=== PATIENT | female | born 1980 | race Caucasian/White ===

== ENCOUNTER 2020-08-15 16:54 | Emergency (ER) | payer OTHER, SELFPAY ==
[2020-08-15 17:27] VITALS: BP 94/55; PULSE 83; RESP 16; TEMP 36.7; O2SAT 96; BMI 30.9
--- NOTE | 2020-08-15 18:55 | ED.SKABFB ---
HPI - Skin/Abscess/Foreign Bdy General Chief complaint: Skin/Abscess/Foreign Body Stated complaint: Red inflamed skin Time Seen by Provider: 08/15/20 18:36 Source: patient Mode of arrival: ambulatory Limitations: no limitations History of Present Illness HPI narrative: 40 y/o female presenting with 1 month of painful sores and ulcerations on her bilateral forearms after she applied lice treatment to her arms. She works as a [employer] and her patient had lice and bed bugs which she treated him for. She then applied some of the creams to her arms because she was paranoid about getting infected. Since then she has had painful blisters and sores to her bilateral forearms. She admits to picking and scratching at them. She applied saran wrap to them because she did not want them to get infected. She reports some oozing of pus some from some of the sites. No fevers or chills. No N/V. MD complaint: abscess/boil and lesion Onset (ago): week(s) (4) Tetanus up to date: yes Location: LUE and RUE Severity: moderate Severity scale (1-10): 7 Quality: burning Pain Consistency: constant Relieving factors: cold therapy Exacerbating factors: none Context: new medication Associated symptoms: denies other symptoms Treatments prior to arrival: bandages, attempted to drain pus at home and OTC topical medication Related Data Previous Rx's Medication Instructions Recorded cephalexin 500 mg PO Q6H 7 Days #28 cap 08/15/20 doxycycline monohydrate 100 mg PO BID #14 cap 08/15/20 mupirocin 1 appl TOPICAL BID #22 g 08/15/20 Allergies Allergy/AdvReac Type Severity Reaction Status Date / Time No Known Allergies Allergy Verified 08/15/20 17:27 Review of Systems Review of Systems: Constitutional: No Fever, No Chills Cardiovascular: No Chest Pain, No SOB Respiratory: No Cough, No Sputum Gastrointestinal: No Nausea, No Vomiting Musculoskeletal: No joint pain, No Myalgias Skin: + Skin Lesions, + rash Neuro: No Weakness, No Numbness, No Dizziness, No Headache Psych: + Anxiety/Panic, No Depression Heme/Lymph: No Bruising, No Lymphadenopathy PMFSH Past Medical History Attestation statement: The following information was validated with the patient. Medical History Back pain Social History Social History Advance Directives: No Advance Directives Information Provided: Yes Physical Exam Vital Signs: Vital Signs: Last Vital Signs Temp 98.1 F 08/15/20 17:27 Pulse 83 08/15/20 17:27 Resp 16 08/15/20 17:27 BP 94/55 L 08/15/20 17:27 Pulse Ox 96 08/15/20 17:27 Body Mass Index 30.9 Appearance: Alert. Oriented X3. No acute distress. HEENT: normal inspection CVS: Normal heart rate and rhythm. Pulses normal. Respiratory: No respiratory distress. Skin: Skin warm and dry. Normal skin color. Normal skin turgor. No rashes. Extremities: bilateral forearms with muliple superficial ulcerations in various stages of healing with surrounding erythema and induration, no fluctuance. right forearm with 1 cm ulceration with oozing. NV intact distally, mildly warm Neuro: Oriented X 3. No motor deficit. No sensory deficit. Course Course Course Narrative: 40 y/o female presenting with bilateral forearm painful ulcerations with induration and erythema consistent with cellulitis. No swelling to suggest DVT. She is afebrile and non-toxic appearing. Will treat with topical and oral abx and have her f/u with [facility] for further management. 1st dose ABX given now. She was counseled on proper wound care. Stable for d/c. Instructed to return of symptoms worsen. Critical Care Time Critical Care Time Critical Care Time: No Discharge Plan Discharge Clinical Impression: Cellulitis Qualifiers: Site of cellulitis: extremity Site of cellulitis of extremity: upper extremity Laterality: unspecified laterality Qualified Code(s): L03.119 - Cellulitis of unspecified part of limb Patient Disposition: Home, Self-Care Instructions: Cellulitis (ED) Additional Instructions: Use topical antibiotic ointment as directed. Keep covered with gauze ONLY. Gently wash with mild, scent free soap daily and then pat dry. Take prescribed antibiotics for 1 week. Follow up with the Wound Center If you develop new or worsening symptoms call 911 or come back to the ER for further evaluation. Prescriptions: New doxycycline monohydrate 100 mg capsule 100 mg PO BID Qty: 14 RF: 0 mupirocin 2 % ointment 1 appl topical BID Qty: 22 RF: 1 cephalexin 500 mg capsule 500 mg PO Q6H 7 Days Qty: 28 RF: 0 Referrals: Wound Care [facility] [Outside] - 2 days
[2020-08-15] MEDS: cephALEXin 500 MG CAPSULE PO (19:17)
== END 2020-08-15 19:14 | disposition home or self-care (01) ==
PROVIDERS: Emergency Provider Emergency Medicine
DX: L03.114 Cellulitis of left upper limb (principal); L03.113 Cellulitis of right upper limb; L98.499 Non-pressure chronic ulcer of skin of other sites with unspecified severity
CPT/HCPCS: 99283; 99284

== ENCOUNTER 2021-03-13 14:40 | Inpatient (IN) | payer OTHER, SELFPAY ==
[2021-03-13] VITALS (13 sets, daily range): BP systolic 95–131; BP diastolic 44–64; PULSE 70–99; RESP 13–20; TEMP 36.7–39.6; O2SAT 96–100
--- NOTE | ~2021-03-13 | XR_ITS ---
EXAMINATION: XR CHEST CLINICAL INFORMATION: Chest pain. COMPARISON: Chest radiograph dated from 03/22/2006. TECHNIQUE: AP view of the chest was obtained. FINDINGS: Normal appearance of the cardiomediastinal silhouette. Multifocal hazy airspace opacities with likely some trace amount of bilateral pleural fluid. No pneumothorax. No acute osseous abnormalities. XR/XR chest 1V IMPRESSION: Hazy multifocal airspace opacities concerning for an atypical infectious or inflammatory process. Recommend continued follow-up to ensure adequate resolution.
--- NOTE | 2021-03-13 14:47 | ECG_ITS ---
Test Reason : chstp pain Blood Pressure : / mmHG Vent. Rate : 094 BPM Atrial Rate : 094 BPM P-R Int : 090 ms QRS Dur : 098 ms QT Int : 378 ms P-R-T Axes : 021 057 087 degrees QTc Int : 472 ms Sinus rhythm with short ME Nonspecific ST abnormality Abnormal ECG No previous ECGs available Referred By: Generic ED Physician Electronically Signed By:ROLANDO RANGEL MD
--- NOTE | 2021-03-13 15:49 | PC.NURSE ---
unable to get blood work in triage
--- NOTE | 2021-03-13 17:53 | ED_ITS ---
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 with nonhealing wounds of both forearms patient still shooting in the wounds specially on the right forearm last time used cocaine was 2 days ago complaining of chest pain started right chest going to the left for last 5-7 days after shoveling snow patient states the pain is continues no shortness of breath no cough noted to have fever of 103 F in the ER patient does not have any history of heart disease patient has received [employer] vaccine Related Data Home Medications Medication Instructions Recorded Confirmed No Known Home Meds 03/13/21 03/13/21 Allergies Allergy/AdvReac Type Severity Reaction Status Date / Time No Known Allergies Allergy Verified 08/15/20 17:27 Review of Systems Verdana 4l Review of Systems: Yes all other systems are reviewed and Verdana 4d are negative [facility] Past Medical History Medical History Back pain Social History Social History Alcohol intake: never Patient Tobacco Use Status: Current everyday Tobacco user Smoked in Last 30 Days: Yes Use of substances other than those prescribed or required for medical reasons: Yes Substance Use Type: Crack/Cocaine, Heroin and Other Substance Use Type Other:: Benzos Substance Use Frequency: Chronic Longstanding Substance Use Frequency Other:: Daily Last Used Substance: Days (ago) Any prior treatment program specific to substance use: Yes Advance Directives: No Advance Directives Information Provided: No Patient : No Physical Exam Verdana 4l Vital Signs: Verdana 4d Verdana 4d Vital Signs: Verdana 4d Verdana 4Bd Last Vital Signs Verdana 4d [employer] New 4d [employer] New 4d Temp 98.0 F 03/13/21 23:50 [employer] New 4d Pulse 72 03/13/21 23:50 [employer] New 4d Resp 16 03/13/21 23:50 BP 119/59 L 03/13/21 23:50 Pulse Ox 98 03/13/21 22:07 BMI result Body Mass Index 30.0 Appearance: Alert. Oriented X3. No acute distress. Eyes: ++ pallor no icterus ENT: Pharynx normal. Oral Mucosa moist Neck: Normal inspection. Neck supple. CVS: Normal heart rate and rhythm. Pulses normal. Respiratory: No respiratory distress. Equal air entry bilateral, no wheezing/rales/rhonchi Abdomen: Soft and nontender. Bowel sounds are present, no mass palpable, rectal: Brown stool guaiac negative Skin: Skin warm and dry. Normal skin color. Normal skin turgor. Extremities: No lower extremity edema. No calf tenderness bilateral forearms nonhealing ulcers Neuro: Oriented X 3. MDM - Chest Pain MDM Narrative Medical decision making narrative: Patient's atypical chest pain with high-grade fever COVID negative chest x-ray showed multifocal opacities likely multifocal pneumonia with history of IV drug use tachycardia meeting the criteria for sepsis started on IV fluids and IV antibiotic will admit patient for nonhealing bilateral forearm wounds with possible bacteremia also will give 2 units of blood for chronic anemia secondary to iron deficiency patient denies any rectal or vaginal bleed Lab Data Attestation: I reviewed the patient's lab results. Result diagrams: 03/13/21 19:15 03/13/21 18:42 Labs: Lab Results 03/13/21 03/13/21 03/13/21 Range/Units 17:54 18:42 18:42 WBC 3.8 L (4.8-10.8) X10*3/uL RBC 2.85 L (4.20-5.50) X10*6/uL Hgb 5.1 L* (12.0-16.0) g/dl Hct 17.4 L* (37.0-47.0) % MCV 61.1 L (80.0-98.0) fL MCH 17.9 L (27.0-33.0) pg MCHC 29.3 L (31.0-35.0) g/dl RDW 18.5 H (11.0-16.0) % Plt Count 105 L (160-400) X10*3/uL MPV TNP Immature Gran % (Auto) Cancelled Neut % (Auto) Cancelled Lymph % (Auto) Cancelled Coffee % (Auto) Cancelled Eos % (Auto) Cancelled Baso % (Auto) Cancelled Lymph # (Auto) Cancelled Coffee # (Auto) Cancelled Eos # (Auto) Cancelled Baso # (Auto) Cancelled Abs Immat Gran (auto) Cancelled Absolute Neuts (auto) Cancelled Absolute Nucleated RBC 0.000 (0.0-0.012) X10*3/uL Nucleated RBC % (auto) 0.0 (0.0-0.2) /100WBC Neutrophils % (Manual) 73 (45-73) % Band Neutrophils % 6 H (3-5) % Lymphocytes % (Manual) 17 L (20-40) % Monocytes % (Manual) 4 (2-11) % Abs Neuts (Manual) 3.0 (2.0-8.3) X10*3/uL Lymphocytes # (Manual) 0.6 L (1.2-4.9) X10*3/uL Monocytes # (Manual) 0.2 (0.1-1.2) X10*3/uL Platelet Estimate DECREASED (NORMAL) Plt Morphology Comment NORM RBC Morphology NORMAL Microcytosis 1+ (5-14) /OIF Tear Drop Cells 2+ (3-5) /OIF Sodium 134 L (135-145) mmol/L Potassium 3.1 L (3.3-5.1) mmol/L Chloride 98 (96-108) mmol/L Carbon Dioxide 25 (22-29) mmol/L Anion Gap 14 (12-20) BUN 11 (9-16) mg/dL Creatinine 0.83 (0.5-1.4) mg/dL Estim Creat Clear Calc 89.1 Estimated GFR > 60 Random Glucose 128 H (60-115) mg/dL Lactic Acid (0.5-2.0) mmol/L Calcium 8.3 L (8.4-10.2) mg/dL Iron 10 L (30-160) mcg/dL TIBC 308 (228-428) mcg/dL % Saturation 3 L (15-50) % Unsat Iron Binding 298 ug/dL Total Bilirubin (0.0-1.0) mg/dL Direct Bilirubin (0.0-0.5) mg/dL AST (5-31) U/L ALT (0-31) U/L Alkaline Phosphatase (39-117) U/L Troponin I High Sens (<3.5-17.0) ng/L Total Protein (6.5-8.0) g/dL Albumin (3.5-5.0) g/dL Stool Occult Blood (NEGATIVE) COVID-19 (KELLI) Negative (Negative) COVID-19 Clin Com See Note Influenza Type A (PCR) (Negative) Influenza Type B (PCR) (Negative) RSV RNA Qual (PCR) (Negative) SARS-CoV-2 RNA (RT-PCR) (Negative) Blood Type Antibody Screen Crossmatch 03/13/21 03/13/21 03/13/21 Range/Units 18:42 18:42 18:42 WBC (4.8-10.8) X10*3/uL RBC (4.20-5.50) X10*6/uL Hgb (12.0-16.0) g/dl Hct (37.0-47.0) % MCV (80.0-98.0) fL MCH (27.0-33.0) pg MCHC (31.0-35.0) g/dl RDW (11.0-16.0) % Plt Count (160-400) X10*3/uL MPV Immature Gran % (Auto) Neut % (Auto) Lymph % (Auto) Coffee % (Auto) Eos % (Auto) Baso % (Auto) Lymph # (Auto) Coffee # (Auto) Eos # (Auto) Baso # (Auto) Abs Immat Gran (auto) Absolute Neuts (auto) Absolute Nucleated RBC (0.0-0.012) X10*3/uL Nucleated RBC % (auto) (0.0-0.2) /100WBC Neutrophils % (Manual) (45-73) % Band Neutrophils % (3-5) % Lymphocytes % (Manual) (20-40) % Monocytes % (Manual) (2-11) % Abs Neuts (Manual) (2.0-8.3) X10*3/uL Lymphocytes # (Manual) (1.2-4.9) X10*3/uL Monocytes # (Manual) (0.1-1.2) X10*3/uL Platelet Estimate (NORMAL) Plt Morphology Comment RBC Morphology Microcytosis /OIF Tear Drop Cells /OIF Sodium (135-145) mmol/L Potassium (3.3-5.1) mmol/L Chloride (96-108) mmol/L Carbon Dioxide (22-29) mmol/L Anion Gap (12-20) BUN (9-16) mg/dL Creatinine (0.5-1.4) mg/dL Estim Creat Clear Calc Estimated GFR Random Glucose (60-115) mg/dL Lactic Acid 1.7 (0.5-2.0) mmol/L Calcium (8.4-10.2) mg/dL Iron (30-160) mcg/dL TIBC (228-428) mcg/dL % Saturation (15-50) % Unsat Iron Binding ug/dL Total Bilirubin 0.5 (0.0-1.0) mg/dL Direct Bilirubin 0.3 (0.0-0.5) mg/dL AST 20 (5-31) U/L ALT 7 (0-31) U/L Alkaline Phosphatase 52 (39-117) U/L Troponin I High Sens 6.0 (<3.5-17.0) ng/L Total Protein 7.2 (6.5-8.0) g/dL Albumin 3.2 L (3.5-5.0) g/dL Stool Occult Blood (NEGATIVE) COVID-19 (KELLI) (Negative) COVID-19 Clin Com Influenza Type A (PCR) (Negative) Influenza Type B (PCR) (Negative) RSV RNA Qual (PCR) (Negative) SARS-CoV-2 RNA (RT-PCR) (Negative) Blood Type Antibody Screen Crossmatch 03/13/21 03/13/21 03/13/21 Range/Units 19:15 19:15 21:01 WBC (4.8-10.8) X10*3/uL RBC (4.20-5.50) X10*6/uL Hgb 5.0 L* (12.0-16.0) g/dl Hct 17.1 L* (37.0-47.0) % MCV (80.0-98.0) fL MCH (27.0-33.0) pg MCHC (31.0-35.0) g/dl RDW (11.0-16.0) % Plt Count (160-400) X10*3/uL MPV Immature Gran % (Auto) Neut % (Auto) Lymph % (Auto) Coffee % (Auto) Eos % (Auto) Baso % (Auto) Lymph # (Auto) Coffee # (Auto) Eos # (Auto) Baso # (Auto) Abs Immat Gran (auto) Absolute Neuts (auto) Absolute Nucleated RBC (0.0-0.012) X10*3/uL Nucleated RBC % (auto) (0.0-0.2) /100WBC Neutrophils % (Manual) (45-73) % Band Neutrophils % (3-5) % Lymphocytes % (Manual) (20-40) % Monocytes % (Manual) (2-11) % Abs Neuts (Manual) (2.0-8.3) X10*3/uL Lymphocytes # (Manual) (1.2-4.9) X10*3/uL Monocytes # (Manual) (0.1-1.2) X10*3/uL Platelet Estimate (NORMAL) Plt Morphology Comment RBC Morphology Microcytosis /OIF Tear Drop Cells /OIF Sodium (135-145) mmol/L Potassium (3.3-5.1) mmol/L Chloride (96-108) mmol/L Carbon Dioxide (22-29) mmol/L Anion Gap (12-20) BUN (9-16) mg/dL Creatinine (0.5-1.4) mg/dL Estim Creat Clear Calc Estimated GFR Random Glucose (60-115) mg/dL Lactic Acid (0.5-2.0) mmol/L Calcium (8.4-10.2) mg/dL Iron (30-160) mcg/dL TIBC (228-428) mcg/dL % Saturation (15-50) % Unsat Iron Binding ug/dL Total Bilirubin (0.0-1.0) mg/dL Direct Bilirubin (0.0-0.5) mg/dL AST (5-31) U/L ALT (0-31) U/L Alkaline Phosphatase (39-117) U/L Troponin I High Sens (<3.5-17.0) ng/L Total Protein (6.5-8.0) g/dL Albumin (3.5-5.0) g/dL Stool Occult Blood (NEGATIVE) COVID-19 (KELLI) (Negative) COVID-19 Clin Com Influenza Type A (PCR) NEGATIVE (Negative) Influenza Type B (PCR) NEGATIVE (Negative) RSV RNA Qual (PCR) NEGATIVE (Negative) SARS-CoV-2 RNA NEGATIVE (Negative) (RT-PCR) Blood Type A Positive Antibody Screen NEGATIVE Crossmatch See Detail 03/13/21 Range/Units 21:01 WBC (4.8-10.8) X10*3/uL RBC (4.20-5.50) X10*6/uL Hgb (12.0-16.0) g/dl Hct (37.0-47.0) % MCV (80.0-98.0) fL MCH (27.0-33.0) pg MCHC (31.0-35.0) g/dl RDW (11.0-16.0) % Plt Count (160-400) X10*3/uL MPV Immature Gran % (Auto) Neut % (Auto) Lymph % (Auto) Coffee % (Auto) Eos % (Auto) Baso % (Auto) Lymph # (Auto) Coffee # (Auto) Eos # (Auto) Baso # (Auto) Abs Immat Gran (auto) Absolute Neuts (auto) Absolute Nucleated RBC (0.0-0.012) X10*3/uL Nucleated RBC % (auto) (0.0-0.2) /100WBC Neutrophils % (Manual) (45-73) % Band Neutrophils % (3-5) % Lymphocytes % (Manual) (20-40) % Monocytes % (Manual) (2-11) % Abs Neuts (Manual) (2.0-8.3) X10*3/uL Lymphocytes # (Manual) (1.2-4.9) X10*3/uL Monocytes # (Manual) (0.1-1.2) X10*3/uL Platelet Estimate (NORMAL) Plt Morphology Comment RBC Morphology Microcytosis /OIF Tear Drop Cells /OIF Sodium (135-145) mmol/L Potassium (3.3-5.1) mmol/L Chloride (96-108) mmol/L Carbon Dioxide (22-29) mmol/L Anion Gap (12-20) BUN (9-16) mg/dL Creatinine (0.5-1.4) mg/dL Estim Creat Clear Calc Estimated GFR Random Glucose (60-115) mg/dL Lactic Acid (0.5-2.0) mmol/L Calcium (8.4-10.2) mg/dL Iron (30-160) mcg/dL TIBC (228-428) mcg/dL % Saturation (15-50) % Unsat Iron Binding ug/dL Total Bilirubin (0.0-1.0) mg/dL Direct Bilirubin (0.0-0.5) mg/dL AST (5-31) U/L ALT (0-31) U/L Alkaline Phosphatase (39-117) U/L Troponin I High Sens (<3.5-17.0) ng/L Total Protein (6.5-8.0) g/dL Albumin (3.5-5.0) g/dL Stool Occult Blood NEGATIVE (NEGATIVE) COVID-19 (KELLI) (Negative) COVID-19 Clin Com Influenza Type A (PCR) (Negative) Influenza Type B (PCR) (Negative) RSV RNA Qual (PCR) (Negative) SARS-CoV-2 RNA (RT-PCR) (Negative) Blood Type Antibody Screen Crossmatch Discharge Plan Discharge Clinical Impression: Bilateral pneumonia, Severe anemia, IVDU (intravenous drug user), Fever Patient Disposition: Admitted As Inpatient
[2021-03-13 18:25] LABS: COVID-19 Test Negative (Negative)
[2021-03-13 18:54] LABS: Mean Corpuscular HGB Conc 29.3 g/dl (31.0-35.0)
[2021-03-13 18:56] LABS: Mean Corpuscular Hemoglobin 17.9 pg (27.0-33.0); Platelet Count 105 X10*3/uL (160-400); Red Blood Count 2.85 X10*6/uL (4.20-5.50); Red Cell Distribution Width 18.5 % (11.0-16.0); White Blood Count 3.8 X10*3/uL (4.8-10.8)
[2021-03-13 19:01] LABS: Hematocrit 17.4 % (37.0-47.0); Hemoglobin 5.1 g/dl (12.0-16.0); Mean Corpuscular Volume 61.1 fL (80.0-98.0)
[2021-03-13 19:02] LABS: PLT ABN DIST 1
[2021-03-13 19:03] LABS: Lactic Acid 1.7 mmol/L (0.5-2.0)
[2021-03-13] MEDS: Acetaminophen 325 MG TABLET 650 MG PO (19:06)
[2021-03-13] MEDS: Piperacillin Sodium/Tazobactam 3.375 GM in 0.9 % Sodium Chloride 50 ML IV (19:07)
[2021-03-13] MEDS: 0.9 % Sodium Chloride 1,000 ML 999 ML IV (19:08)
[2021-03-13 19:09] LABS: Anion Gap 14 (12-20); Blood Urea Nitrogen 11 mg/dL (9-16); Calcium 8.3 mg/dL (8.4-10.2); Carbon Dioxide 25 mmol/L (22-29); Chloride 98 mmol/L (96-108); Creatinine Clr Calc Pharmacy 89.1; Estimated Glomerular Filt Rate > 60; Glucose Random 128 mg/dL (60-115); Potassium 3.1 mmol/L (3.3-5.1); Sodium 134 mmol/L (135-145)
--- NOTE | 2021-03-13 19:09 | PC.NURSE ---
pt medicated per provider's order
[2021-03-13 19:11] LABS: Alanine Aminotransferase 7 U/L (0-31); Albumin Level 3.2 g/dL (3.5-5.0); Alkaline Phosphatase 52 U/L (39-117); Aspartate Amino Transferase 20 U/L (5-31); Bilirubin Direct 0.3 mg/dL (0.0-0.5); Bilirubin Total 0.5 mg/dL (0.0-1.0); Total Protein 7.2 g/dL (6.5-8.0)
[2021-03-13 19:17] LABS: Band Neutrophils Percent 6 % (3-5); Lymphocytes Absolute Manual 0.6 X10*3/uL (1.2-4.9); Lymphocytes Percent Manual 17 % (20-40); Microcytosis 1+ (5-14) /OIF; Monocytes Absolute Manual 0.2 X10*3/uL (0.1-1.2); Monocytes Percent Manual 4 % (2-11); Neutrophils Percent Manual 73 % (45-73); RBC Morphology NORMAL
[2021-03-13 19:18] LABS: Platelet Estimate DECREASED (NORMAL); Platelet Morphology Comment NORM; Tear Drop Cells 2+ (3-5) /OIF
[2021-03-13 19:22] LABS: Hematocrit 17.1 % (37.0-47.0)
[2021-03-13] MEDS: vancomycin HCL 1,000 MG in 0.9 % Sodium Chloride 250 ML 270 MG IV (20:10)
--- NOTE | 2021-03-13 20:23 | PC.NURSE ---
Vitals obtained prior to starting blood transfusion. PT found to have fever. Provider informed. This RN instructed to continue with transfusion. Mee boyer paused to start blood transfusion.
[2021-03-13 21:01] LABS: Iron 10 mcg/dL (30-160); Percent Iron Saturation 3 % (15-50); Total Iron Binding Capacity 308 mcg/dL (228-428); Unsaturated Iron Binding 298 ug/dL
[2021-03-13 21:06] LABS: OBS Int Ctl Valid YES; OBS1 NEGATIVE (NEGATIVE)
[2021-03-13 21:43] LABS: Influenza A PCR NEGATIVE (Negative); Influenza B PCR NEGATIVE (Negative); Resp Syncy Virus RNA Qual PCR NEGATIVE (Negative); SARS COV2 PCR INHOUSE NEGATIVE (Negative)
--- NOTE | 2021-03-13 21:46 | P.HPHOSP_ITS ---
History of Present Illness Date of Service: 03/13/21 Chief Complaint: CP, SOB 41-year-old female who denies any past medical history presents to the hospital with complaints of chest pain, shortness of breath, cough, and generally not feeling well. Patient reports that her symptoms started about a week ago. She has also had a fever and been feeling chills. She reports no recent sick contacts, she does use cocaine and heroin which she injects to wounds in her arms bilaterally. She reports that she has been cutting down on drugs but may be experiencing withdrawals at this time. She describes the chest pain as sharp, stabbing, constant, nonradiating, 5/10 in nature. No relieving factors. Patient denies any headache or change in vision, no abdominal pain nausea or vomiting, has diarrhea with no constipation. No urinary symptoms and no lower extremity edema. On arrival to the ED patient found to have a temp of 103.2, with a soft BP. Satting 98% on room air Labs are significant for leukopenia of 3.8, hemoglobin of 5.1, hematocrit of 17.4, MCV of 61.1, sodium of 134, potassium 3.1, UA positive for leukocyte Estrace as well WBC, COVID-19 negative. COVID-19 PCR is also negative. When asked about her anemia, patient denies any melena, but reports bright red blood sometimes mixed with her stool, denies using any NSAIDs. Denies having heavy menses and reports that she has not had any menses in 3 years. Chest x-ray shows hazy multifocal airspace opacities concerning for an atypical infection Patient started on antibiotics, given fluids and will be admitted for further management Review of Systems Verdana 4l Review of Systems: Yes all other systems are reviewed and Verdana 4d are negative [facility] Medical History (Updated 03/14/21 @ 06:22 by Luis Tobias MD) Back pain Pertinent family history: No coronary artery disease in family Surgical History (Updated 03/14/21 @ 06:21 by Luis Tobias MD) No pertinent past surgical history Social History Alcohol intake: never Patient Tobacco Use Status: Current everyday Tobacco user Smoked in Last 30 Days: Yes Use of substances other than those prescribed or required for medical reasons: Yes Substance Use Type: Crack/Cocaine, Heroin and Other Substance Use Type Other:: Benzos Substance Use Frequency: Chronic Longstanding Substance Use Frequency Other:: Daily Last Used Substance: Days (ago) Any prior treatment program specific to substance use: Yes Advance Directives: No Advance Directives Information Provided: No Patient : No Meds Allergies Allergy/AdvReac Type Severity Reaction Status Date / Time No Known Allergies Allergy Verified 08/15/20 17:27 Active Medications: Current Medications Acetaminophen (Acetaminophen 325 Mg Tablet) 650 mg PO Q6H PRN PRN Reason: Pain, Mild (Pain Scale 1-3) Docusate Sodium (Docusate Sodium 100 Mg Capsule) 100 mg PO DAILY PRN PRN Reason: Constipation Enoxaparin Sodium (Enoxaparin Sodium 40 Mg/0.4 Ml Syringe) 40 mg SUBCUT Q24H [facility] Hydromorphone HCl (Hydromorphone Hcl 1 Mg/Ml Syringe) 0.5 mg IVPUSH Q4H PRN; Protocol PRN Reason: Pain, Severe (Pain Scale 7-10) Ceftriaxone Sodium 1 gm/ (Sodium Chloride) 50 mls @ 100 mls/hr IV Q24H [facility] Azithromycin 500 mg/ Sodium (Chloride) 250 mls @ 125 mls/hr IV Q24H [facility] Lactated Ringer's (Lr) 1,000 mls @ 999 mls/hr IV .Q1H1M [facility] Stop: 03/13/21 22:45 Ondansetron HCl (Ondansetron Hcl 4 Mg/2 Ml Vial) 4 mg IVPUSH Q8H PRN PRN Reason: Nausea and Vomiting Sodium Chloride (0.9 % Sodium Chloride Flush 3 Ml Syringe) 3 ml IVFLUSH QSHIFT [facility] Home Medications Medication Instructions Recorded Confirmed Last Taken Type No Known Home Meds 03/13/21 03/13/21 Unknown History Physical Exam Verdana 4l Vital Signs and Narrative: Verdana 4d Verdana 4d Vital Signs: Verdana 4d Verdana 4Bd Last Vital Signs Verdana 4d Product Developer New 4d Product Developer New 4d Temp 99.5 F 03/13/21 21:25 Product Developer New 4d Pulse 76 03/13/21 21:25 Product Developer New 4d Resp 13 03/13/21 21:25 BP 95/45 L 03/13/21 21:25 Pulse Ox 97 03/13/21 21:25 BMI result Body Mass Index 30.0 Const: General: cooperative and no acute distress Orientation/consciousness: patient oriented x3 Eyes: General: appearance normal, both eyes and all related structures Pupils: Equal, round and reactive pupils present Resp: Other: Crackles bilaterally Effort & Inspection: normal respiratory effort Cardio: Rate: regular rate Rhythm: regular rhythm GI: Palpation (GI): Soft to palpation Auscultation: normal bowel sounds Skin: General skin exam: no rashes or lesions noted Neuro: General: patient oriented x3 Cranial nerves: Yes Equal, round and reactive pupils present Cognition (Neuro): normal cognition Extrem: Other: Has chronic wounds on both forearms, she patient reports that she used to inject cocaine and heroin in these regions Nontender, erythema present, no drainage Results Labs CBC and Chem 7: 03/14/21 04:47 03/14/21 04:47 Labs: Laboratory Results - last 24 hr 03/13/21 03/13/21 03/13/21 17:54 18:42 18:42 MCV 61.1 L MCH 17.9 L MCHC 29.3 L RDW 18.5 H Plt Count 105 L MPV TNP Immature Gran % (Auto) Cancelled Neut % (Auto) Cancelled Lymph % (Auto) Cancelled Morris % (Auto) Cancelled Eos % (Auto) Cancelled Baso % (Auto) Cancelled Lymph # (Auto) Cancelled Morris # (Auto) Cancelled Eos # (Auto) Cancelled Baso # (Auto) Cancelled Abs Immat Gran (auto) Cancelled Absolute Neuts (auto) Cancelled Absolute Nucleated RBC 0.000 Nucleated RBC % (auto) 0.0 Neutrophils % (Manual) 73 Band Neutrophils % 6 H Lymphocytes % (Manual) 17 L Monocytes % (Manual) 4 Abs Neuts (Manual) 3.0 Lymphocytes # (Manual) 0.6 L Monocytes # (Manual) 0.2 Platelet Estimate DECREASED Plt Morphology Comment NORM RBC Morphology NORMAL Microcytosis 1+ (5-14) Tear Drop Cells 2+ (3-5) Anion Gap 14 Estim Creat Clear Calc 89.1 Estimated GFR > 60 Random Glucose 128 H Lactic Acid Calcium 8.3 L Iron 10 L TIBC 308 % Saturation 3 L Unsat Iron Binding 298 Total Bilirubin Direct Bilirubin AST ALT Alkaline Phosphatase Troponin I High Sens Total Protein Albumin Stool Occult Blood COVID-19 (KELLI) Negative COVID-19 Clin Com See Note Blood Type Antibody Screen Crossmatch 03/13/21 03/13/21 03/13/21 18:42 18:42 18:42 MCV MCH MCHC RDW Plt Count MPV Immature Gran % (Auto) Neut % (Auto) Lymph % (Auto) Morris % (Auto) Eos % (Auto) Baso % (Auto) Lymph # (Auto) Morris # (Auto) Eos # (Auto) Baso # (Auto) Abs Immat Gran (auto) Absolute Neuts (auto) Absolute Nucleated RBC Nucleated RBC % (auto) Neutrophils % (Manual) Band Neutrophils % Lymphocytes % (Manual) Monocytes % (Manual) Abs Neuts (Manual) Lymphocytes # (Manual) Monocytes # (Manual) Platelet Estimate Plt Morphology Comment RBC Morphology Microcytosis Tear Drop Cells Anion Gap Estim Creat Clear Calc Estimated GFR Random Glucose Lactic Acid 1.7 Calcium Iron TIBC % Saturation Unsat Iron Binding Total Bilirubin 0.5 Direct Bilirubin 0.3 AST 20 ALT 7 Alkaline Phosphatase 52 Troponin I High Sens 6.0 Total Protein 7.2 Albumin 3.2 L Stool Occult Blood COVID-19 (KELLI) COVID-[employer] Com Blood Type Antibody Screen Crossmatch 03/13/21 03/13/21 19:15 21:01 MCV MCH MCHC RDW Plt Count MPV Immature Gran % (Auto) Neut % (Auto) Lymph % (Auto) Morris % (Auto) Eos % (Auto) Baso % (Auto) Lymph # (Auto) Morris # (Auto) Eos # (Auto) Baso # (Auto) Abs Immat Gran (auto) Absolute Neuts (auto) Absolute Nucleated RBC Nucleated RBC % (auto) Neutrophils % (Manual) Band Neutrophils % Lymphocytes % (Manual) Monocytes % (Manual) Abs Neuts (Manual) Lymphocytes # (Manual) Monocytes # (Manual) Platelet Estimate Plt Morphology Comment RBC Morphology Microcytosis Tear Drop Cells Anion Gap Estim Creat Clear Calc Estimated GFR Random Glucose Lactic Acid Calcium Iron TIBC % Saturation Unsat Iron Binding Total Bilirubin Direct Bilirubin AST ALT Alkaline Phosphatase Troponin I High Sens Total Protein Albumin Stool Occult Blood NEGATIVE COVID-19 (KELLI) COVIDMemamp Com Blood Type A Positive Antibody Screen NEGATIVE Crossmatch See Detail Imaging Radiologist's Impressions: Impressions Chest X-Ray 03/13/21 18:50 IMPRESSION: Hazy multifocal airspace opacities concerning for an atypical infectious or inflammatory process. Recommend continued follow-up to ensure adequate resolution. Assessment and Plan (1) Bilateral pneumonia: Status: Acute (2) Severe anemia: Status: Acute (3) Sepsis: Status: Acute (4) UTI (urinary tract infection): Status: Acute Plan 41-year-old female with past medical history of IV drug use presents to the hospital with complaints of chest pain, shortness of breath found to have severe anemia as well as pneumonia # sepsis - most likely secondary to pneumonia as well as UTI complicated by skin infection - has fever, leukopenia - started on broad IV antibiotics - follow cultures # microcytic anemia - unclear etiology - stool guaiac negative - transfuse 2 units of PRBC in the ED - follow CBC - will order ferritin # community-acquired pneumonia - COVID-19 negative - started on IV antibiotic - follow cultures # UTI - positive UA - IV antibiotics as above - follow cultures # IV drug use - is afraid to start Suboxone at this time, will consult care team, in the meanwhile will place her on Dilaudid DVT prophylaxis: Lovenox Quality Stroke Does the patient have a stroke diagnosis?: No VTE Prior VTE?: No VTE Risk Level:: Medical - moderate - high VTE Device Contraindication: Treatment Not Indicated VTE Drug Contraindication: N/A - Med Ordered
[2021-03-13 22:05] LABS: Appearance Urine HAZY; Color Urine YELLOW; Glucose Urine UA NEG (NEG); Leukocyte Esterase Urine 2+ (NEG); Nitrite Urine NEG (NEG); UACC Culture Trigger YES; Urine Blood TRACE (NEG); Urine Ketones NEG (NEG); Urine Protein 1+ MG/DL (NEG-TRACE)
--- NOTE | 2021-03-13 22:08 | PHA.PROG ---
Admission Date/Time: March 13, 2021 21:44 Indication: Skin and soft tissue infection Weight in k.379 kg Adjusted body weight in K.6 [place] body weight in K.7 Obesity Dosing Indication % IBW: Serum Creatinine - Last 168 Hours 03/13/21 18:42 Creatinine 0.83 Estimated CrCl and GFR - Last 168 Hours 03/13/21 18:42 Estim Creat Clear Calc 89.1 Estimated GFR > 60 Vancomycin Loading Dose: 1000 mg Current Vancomycin Dosing Regimen: 1000 mg Q12H Vancomycin Monitoring using AUC goal of 400 - 600 range with trough as surrogate marker: Predicted AUC to be 470mg/L with predicted trough of 14.5mg/L Date and Time for next Vancomycin Level to be drawn: 03/15/21 @ 0600 Pharmacist Comments on Vancomycin Plan: May need to increase to 1250mg Q12H Vancomycin dosing will take advantage of [employer] as a clinical decision support tool that uses Bayesian modeling to calculate individual patient's pharmacokinetic parameters and forecast the patient's drug concentration time course with the target goal AUC 24 range of 400 - 600 mg/L/hr.
[2021-03-13 22:10] LABS: Bacteria Urine 4+ /LPF; RBC Urine 0-2 /HPF (0); Squamous Epithelial Cell Urine 2+ /LPF
[2021-03-13] MEDS: Ketorolac Tromethamine 30 MG/ML VIAL IVPUSH (22:54)
[2021-03-13] MEDS: LORazepam 2 MG/ML VIAL IVPUSH (22:55)
--- NOTE | 2021-03-14 | PC.NURSE ---
Assumed care of pt from main ED. Blood transfusion complete on arrival. When flushing pt IV, pt stated to this RN so if I wanted to put drugs through here, I would have to use this one right? referring to second port on j-loop. Pt educated that intravenous drug use while in the hospital is not acceptable, stated no I wouldn't do that without having a conversation with you first . Belongings removed for safety. automobile upholsterer apprentice Santosh and security staff notified. Multiple uncapped needles found in pt belongings along w/ various other drug paraphernalia. Pt educated that belongings will need to remain locked up while admitted, verbalized understanding, calm and cooperative. States she was just kidding about using PIV for drugs.
[2021-03-14] MEDS: Lactated Ringers 1,000 ML 999 ML IV (01:05)
[2021-03-14] MEDS: Piperacillin Sodium/Tazobactam 3.375 GM in 0.9 % Sodium Chloride 50 ML IV ×2 (03:07→13:13)
[2021-03-14] MEDS: HYDROmorphone HCl 1 MG/ML SYRINGE 0.5 MG IVPUSH ×3 (03:54→16:50)
[2021-03-14 05:02] LABS: Basophils Percent Auto 0.2 % (0-2); Eosinophils Percent Auto 0.2 % (0-4); Hematocrit 23.3 % (37.0-47.0); Imm Gran Abs Auto 0.04 X10*3/uL (0.00-0.03); Imm Gran Pct Auto 0.9 % (0.0-0.4); Lymphocytes Absolute Auto 0.9 X10*3/uL (1.2-4.9); Lymphocytes Percent Auto 20.5 % (20-40); Mean Corpuscular Hemoglobin 19.9 pg (27.0-33.0); Mean Corpuscular Volume 66.4 fL (80.0-98.0); Monocytes Absolute Auto 0.3 X10*3/uL (0.1-1.2); Monocytes Percent Auto 7.9 % (2-11); Neutrophils Percent Auto 70.3 % (45-73); PLT CLUMP 1; Red Blood Count 3.51 X10*6/uL (4.20-5.50); SCAN SMEAR FLAG 1
[2021-03-14 05:05] LABS: White Blood Count 4.3 X10*3/uL (4.8-10.8)
[2021-03-14 05:06] LABS: MANUAL DIFF FLAG O
[2021-03-14 05:21] LABS: Platelet Count 76 X10*3/uL (160-400)
[2021-03-14 05:23] LABS: Anion Gap 14 (12-20); Blood Urea Nitrogen 12 mg/dL (9-16); Calcium 7.9 mg/dL (8.4-10.2); Carbon Dioxide 21 mmol/L (22-29); Chloride 105 mmol/L (96-108); Estimated Glomerular Filt Rate > 60; Glucose Random 106 mg/dL (60-115); Potassium 3.1 mmol/L (3.3-5.1); Sodium 137 mmol/L (135-145)
[2021-03-14 06:26] VITALS: BP 118/78; PULSE 79; RESP 12; TEMP 36.9; O2SAT 98
--- NOTE | 2021-03-14 06:44 | MHC.PIE ---
Maribelln. Blood cultures positive for gram postive Cocci with clusters I- notified via [employer]. E-Monitor pt for worsening condition and await MD orders
[2021-03-14 07:49] LABS: Ferritin 57 ng/mL (10-250)
--- NOTE | 2021-03-14 09:02 | P.CDIC_ITS ---
CDI Concurrent Query Documentation Clarification: PHYSICIAN'S DOCUMENTATION REQUEST Date of Query: 03/14/21 0902 Patient Name: Smita Pedroza Admit Date: 03/13/21 Dear Doctor, A review of the medical record indicates additional documentation may be needed. Please review below and update the documentation accordingly. Clinical Indicators: Verdana 4Bd Risk Factors/Clinical Indicators/Treatments Verdana 4d H&P: non healing b/l forearm wounds with possible bacteremia also will give 2 units blood from chronic anemia 2nd to iron deficiency. Shortness of breath and chest pains. HCT 17.4 HGB 5.1 Assessment/plan: microcytic anemia, unclear etiology. Based on the above, could you clarify in the Progress Notes which of the following is the most likely type of anemia you are evaluating, treating, and/or monitoring? * Acute blood loss anemia * Chronic iron deficiency anemia 2nd to acute blood loss * Other ? please specify * Unable to determine Use of terms such as suspected, likely, concern for, or probable (associated with a specific diagnosis that is being evaluated, monitored, or treated as if it exists) are acceptable and can be coded in the inpatient setting, when documented at the time of discharge. Thank you, Arabella Selby [facility], CDIS Extension: [phone] Please use your independent medical judgment in providing your response. THIS QUERY IS PART OF THE PERMANENT MEDICAL RECORD Provider Response: Other Other Diagnosis: anemia of chronic disease likely
[2021-03-14] MEDS: methADONE HCl 20 MG/2 ML ORAL.CONC PO (12:06)
--- NOTE | 2021-03-14 13:09 | PC.NURSE ---
US GUIDED PERIPHERAL IV START TO LUE UTILIZING CEPHALIC VEIN. SINGLE ATTEMPT BY THIS RN. 20G X 1 3/4 IN. IV CATH.
[2021-03-14 13:17] LABS: INTERNATIONAL NORM RATIO 1.3 (0.9-1.1); Prothrombin Time 14.5 SEC (9.9-13.0)
--- NOTE | 2021-03-14 13:27 | P.PNIM_ITS ---
Subjective Subjective Date of Service: 03/14/21 Interval History: No acute issues overnight Review of Systems Denies CP Denies SOB Denies N/V/D Physical Exam Verdana 4l Vital Signs: Verdana 4d Verdana 4d Vital Signs: Verdana 4d Verdana 4Bd Last Vital Signs Verdana 4d District Sales Leader New 4d District Sales Leader New 4d Temp 98.5 F 03/14/21 06:26 District Sales Leader New 4d Pulse 79 03/14/21 06:26 District Sales Leader New 4d Resp 12 03/14/21 06:26 BP 118/78 03/14/21 06:26 Pulse Ox 98 03/14/21 06:26 BMI result Body Mass Index 30.0 Const: Other: No acute distress Resp: Other: Clear A/P. No R/R/W Cardio: Other: -S4 +S1/S2 -S4 no M/R/G GI: Other: Soft NT/ND NABS x 4 quads Extrem: Other: open wounds to bilat forearms Objective Data Active Medications Acetaminophen (Acetaminophen 325 Mg Tablet) 650 mg PO Q6H PRN PRN Reason: Pain, Mild (Pain Scale 1-3) Docusate Sodium (Docusate Sodium 100 Mg Capsule) 100 mg PO DAILY PRN PRN Reason: Constipation Enoxaparin Sodium (Enoxaparin Sodium 40 Mg/0.4 Ml Syringe) 40 mg SUBCUT Q24H [facility] Last Admin: 03/14/21 00:42 Dose: Not Given Documented by: IRINEO Non-Admin Reason: Patient Refused Hydromorphone HCl (Hydromorphone Hcl 1 Mg/Ml Syringe) 0.5 mg IVPUSH Q4H PRN; Protocol PRN Reason: Pain, Severe (Pain Scale 7-10) Last Admin: 03/14/21 13:05 Dose: 0.5 mg Documented by: RYLEE Piperacillin Sod/Tazobactam (Sod 3.375 gm/ Sodium Chloride) 50 mls @ 100 mls/hr IV Q6H [facility] Last Admin: 03/14/21 13:13 Dose: 100 mls/hr Documented by: RYLEE Vancomycin HCl 1,000 mg/ (Sodium Chloride) 270 mls @ 270 mls/hr IV Q12H [facility] Ondansetron HCl (Ondansetron Hcl 4 Mg/2 Ml Vial) 4 mg IVPUSH Q8H PRN PRN Reason: Nausea and Vomiting Pharmacy Consult (Consult Rx Vancomycin Dosing) 1 each MISCELLANE DAILY PRN PRN Reason: Consult order Sodium Chloride (0.9 % Sodium Chloride Flush 3 Ml Syringe) 3 ml IVFLUSH QSHIFT [facility] Last Admin: 03/14/21 11:54 Dose: Not Given Documented by: RYLEE Non-Admin Reason: No Access Labs CBC & Chem 7: 03/14/21 04:47 03/14/21 04:47 Labs: Laboratory Results - last 24 hr 03/13/21 03/13/21 03/13/21 17:54 18:42 18:42 MCV 61.1 L MCH 17.9 L MCHC 29.3 L RDW 18.5 H Plt Count 105 L MPV TNP Immature Gran % (Auto) Cancelled Neut % (Auto) Cancelled Lymph % (Auto) Cancelled Bradford % (Auto) Cancelled Eos % (Auto) Cancelled Baso % (Auto) Cancelled Lymph # (Auto) Cancelled Bradford # (Auto) Cancelled Eos # (Auto) Cancelled Baso # (Auto) Cancelled Abs Immat Gran (auto) Cancelled Absolute Neuts (auto) Cancelled Absolute Nucleated RBC 0.000 Nucleated RBC % (auto) 0.0 Neutrophils % (Manual) 73 Band Neutrophils % 6 H Lymphocytes % (Manual) 17 L Monocytes % (Manual) 4 Abs Neuts (Manual) 3.0 Lymphocytes # (Manual) 0.6 L Monocytes # (Manual) 0.2 Platelet Estimate DECREASED Plt Morphology Comment NORM RBC Morphology NORMAL Microcytosis 1+ (5-14) Tear Drop Cells 2+ (3-5) Smear Path Review SEE NOTE PT INR Anion Gap 14 Estim Creat Clear Calc 89.1 Estimated GFR > 60 Random Glucose 128 H Lactic Acid Calcium 8.3 L Iron 10 L TIBC 308 % Saturation 3 L Unsat Iron Binding 298 Ferritin Total Bilirubin Direct Bilirubin AST ALT Alkaline Phosphatase Troponin I High Sens Total Protein Albumin Urine Color Urine Appearance Urine pH Ur Specific [place] Urine Protein Urine Glucose (UA) Urine Ketones Urine Blood Urine Nitrite Ur Leukocyte Esterase Urine RBC Urine WBC Ur Squamous Epith Cells Urine Bacteria Stool Occult Blood COVID-19 (KELLI) Negative COVID-19 Clin Com See Note Influenza Type A (PCR) Influenza Type B (PCR) RSV RNA Qual (PCR) SARS-CoV-2 RNA (RT-PCR) Blood Type Antibody Screen Crossmatch 03/13/21 03/13/21 03/13/21 18:42 18:42 18:42 MCV MCH MCHC RDW Plt Count MPV Immature Gran % (Auto) Neut % (Auto) Lymph % (Auto) Bradford % (Auto) Eos % (Auto) Baso % (Auto) Lymph # (Auto) Bradford # (Auto) Eos # (Auto) Baso # (Auto) Abs Immat Gran (auto) Absolute Neuts (auto) Absolute Nucleated RBC Nucleated RBC % (auto) Neutrophils % (Manual) Band Neutrophils % Lymphocytes % (Manual) Monocytes % (Manual) Abs Neuts (Manual) Lymphocytes # (Manual) Monocytes # (Manual) Platelet Estimate Plt Morphology Comment RBC Morphology Microcytosis Tear Drop Cells Smear Path Review PT INR Anion Gap Estim Creat Clear Calc Estimated GFR Random Glucose Lactic Acid 1.7 Calcium Iron TIBC % Saturation Unsat Iron Binding Ferritin Total Bilirubin 0.5 Direct Bilirubin 0.3 AST 20 ALT 7 Alkaline Phosphatase 52 Troponin I High Sens 6.0 Total Protein 7.2 Albumin 3.2 L Urine Color Urine Appearance Urine pH Ur Specific [place] Urine Protein Urine Glucose (UA) Urine Ketones Urine Blood Urine Nitrite Ur Leukocyte Esterase Urine RBC Urine WBC Ur Squamous Epith Cells Urine Bacteria Stool Occult Blood COVID-19 (KELLI) COVID-19 Clin Com Influenza Type A (PCR) Influenza Type B (PCR) RSV RNA Qual (PCR) SARS-CoV-2 RNA (RT-PCR) Blood Type Antibody Screen Crossmatch 03/13/21 03/13/21 03/13/21 19:15 21:01 21:01 MCV MCH MCHC RDW Plt Count MPV Immature Gran % (Auto) Neut % (Auto) Lymph % (Auto) Bradford % (Auto) Eos % (Auto) Baso % (Auto) Lymph # (Auto) Bradford # (Auto) Eos # (Auto) Baso # (Auto) Abs Immat Gran (auto) Absolute Neuts (auto) Absolute Nucleated RBC Nucleated RBC % (auto) Neutrophils % (Manual) Band Neutrophils % Lymphocytes % (Manual) Monocytes % (Manual) Abs Neuts (Manual) Lymphocytes # (Manual) Monocytes # (Manual) Platelet Estimate Plt Morphology Comment RBC Morphology Microcytosis Tear Drop Cells Smear Path Review PT INR Anion Gap Estim Creat Clear Calc Estimated GFR Random Glucose Lactic Acid Calcium Iron TIBC % Saturation Unsat Iron Binding Ferritin Total Bilirubin Direct Bilirubin AST ALT Alkaline Phosphatase Troponin I High Sens Total Protein Albumin Urine Color Urine Appearance Urine pH Ur Specific [place] Urine Protein Urine Glucose (UA) Urine Ketones Urine Blood Urine Nitrite Ur Leukocyte Esterase Urine RBC Urine WBC Ur Squamous Epith Cells Urine Bacteria Stool Occult Blood NEGATIVE COVID-19 (KELLI) COVID-19 Clin Com Influenza Type A (PCR) NEGATIVE Influenza Type B (PCR) NEGATIVE RSV RNA Qual (PCR) NEGATIVE SARS-CoV-2 RNA (RT-PCR) NEGATIVE Blood Type A Positive Antibody Screen NEGATIVE Crossmatch See Detail 03/13/21 03/14/21 03/14/21 22:00 04:47 04:47 MCV 66.4 L D MCH 19.9 L MCHC 30.0 L RDW 24.0 H Plt Count 76 L D MPV TNP Immature Gran % (Auto) 0.9 H Neut % (Auto) 70.3 Lymph % (Auto) 20.5 Bradford % (Auto) 7.9 Eos % (Auto) 0.2 Baso % (Auto) 0.2 Lymph # (Auto) 0.9 L [place] # (Auto) 0.3 Eos # (Auto) 0.0 Baso # (Auto) 0.0 Abs Immat Gran (auto) 0.04 H Absolute Neuts (auto) 3.0 Absolute Nucleated RBC 0.000 Nucleated RBC % (auto) 0.0 Neutrophils % (Manual) Band Neutrophils % Lymphocytes % (Manual) Monocytes % (Manual) Abs Neuts (Manual) Lymphocytes # (Manual) Monocytes # (Manual) Platelet Estimate Plt Morphology Comment RBC Morphology Microcytosis Tear Drop Cells Smear Path Review PT INR Anion Gap 14 Estim Creat Clear Calc 96.0 Estimated GFR > 60 Random Glucose 106 Lactic Acid Calcium 7.9 L Iron TIBC % Saturation Unsat Iron Binding Ferritin Total Bilirubin Direct Bilirubin AST ALT Alkaline Phosphatase Troponin I High Sens Total Protein Albumin Urine Color YELLOW Urine Appearance HAZY Urine pH 6.0 Ur Specific [place] 1.020 Urine Protein 1+ H Urine Glucose (UA) NEG Urine Ketones NEG Urine Blood TRACE Urine Nitrite NEG Ur Leukocyte Esterase 2+ H Urine RBC 0-2 Urine WBC 15-29 H Ur Squamous Epith Cells 2+ Urine Bacteria 4+ Stool Occult Blood COVID-19 (KELLI) COVID-19 Clin Com Influenza Type A (PCR) Influenza Type B (PCR) RSV RNA Qual (PCR) SARS-CoV-2 RNA (RT-PCR) Blood Type Antibody Screen Crossmatch 03/14/21 03/14/21 06:53 12:50 MCV MCH MCHC RDW Plt Count MPV Immature Gran % (Auto) Neut % (Auto) Lymph % (Auto) [place] % (Auto) Eos % (Auto) Baso % (Auto) Lymph # (Auto) [place] # (Auto) Eos # (Auto) Baso # (Auto) Abs Immat Gran (auto) Absolute Neuts (auto) Absolute Nucleated RBC Nucleated RBC % (auto) Neutrophils % (Manual) Band Neutrophils % Lymphocytes % (Manual) Monocytes % (Manual) Abs Neuts (Manual) Lymphocytes # (Manual) Monocytes # (Manual) Platelet Estimate Plt Morphology Comment RBC Morphology Microcytosis Tear Drop Cells Smear Path Review PT 14.5 H INR 1.3 H Anion Gap Estim Creat Clear Calc Estimated GFR Random Glucose Lactic Acid Calcium Iron TIBC % Saturation Unsat Iron Binding Ferritin 57 Total Bilirubin Direct Bilirubin AST ALT Alkaline Phosphatase Troponin I High Sens Total Protein Albumin Urine Color Urine Appearance Urine pH Ur Specific [place] Urine Protein Urine Glucose (UA) Urine Ketones Urine Blood Urine Nitrite Ur Leukocyte Esterase Urine RBC Urine WBC Ur Squamous Epith Cells Urine Bacteria Stool Occult Blood COVID-19 (KELLI) COVID-19 Clin Com Influenza Type A (PCR) Influenza Type B (PCR) RSV RNA Qual (PCR) SARS-CoV-2 RNA (RT-PCR) Blood Type Antibody Screen Crossmatch Microbiology Microbiology Results: Microbiology 03/13/21 18:41 Blood Culture - Preliminary Blood - Venous Prelim: GPC Gram Stain only 03/13/21 18:41 Blood Culture - Preliminary Blood - Venous Prelim: GPC Gram Stain only Assessment and Plan (1) Bilateral pneumonia: Status: Acute (2) IVDU (intravenous drug user): Status: Acute (3) UTI (urinary tract infection): Status: Acute (4) Severe anemia: Status: Acute Plan 41-year-old female with past medical history of IV drug use presents to the hospital with complaints of chest pain, shortness of breath found to have severe anemia as well as pneumonia; responded well to therapies 1.Anemia(chronic disease) - follow up CBC in am 2.Community-acquired pneumonia -COVID-19 negative -Continue Vanco/Zosyn as ordered 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 Await culture 5. IVDA ( cocaine/opiates) -Addiction medicine consult DVT prophylaxis: Lovenox Quality Stroke Does the patient have a stroke diagnosis?: No VTE Prior VTE?: No VTE Risk Level:: Medical - moderate - high VTE Device Contraindication: Treatment Not Indicated VTE Drug Contraindication: N/A - Med Ordered
--- NOTE | 2021-03-14 13:43 | HE.PHANOTE ---
Vancomycin dose time change and trough adjust. RN hung bag 6 hours late due to a new line inserted
[2021-03-14] MEDS: vancomycin HCL 1,000 MG in 0.9 % Sodium Chloride 250 ML 270 MG IV (13:51)
[2021-03-14 14:53] VITALS: BP 123/65; PULSE 81; RESP 17; TEMP 36.7; O2SAT 98
[2021-03-14] MEDS: methylPREDNISolone Sod Succ 125 MG/2 ML VIAL 60 MG IVPUSH (15:44)
[2021-03-14] MEDS: Potassium Chloride Packet 20 MEQ PACKET 40 MEQ PO (15:44)
[2021-03-14] MEDS: 0.9 % Sodium Chloride Flush 3 ML SYRINGE IVFLUSH (15:45)
[2021-03-14 15:53] LABS: Amphetamine Screen Urine Not Detected (Not Detect); Barbiturates, Urine Not Detected (Not Detect); Benzodiazepines Screen Urine Not Detected (Not Detect); Cannabinoid Screen Urine Not Detected (Not Detect); Cocaine Screen Urine POSITIVE (Not Detect); Fentanyl, urine POSITIVE (Not Detect); Opiate Screen Urine POSITIVE (Not Detect); Phencyclidine Screen Urine Not Detected (Not Detect)
--- NOTE | 2021-03-14 16:22 | MHC.CM.PN ---
Met with patient in regards to dischrage planning. Patient lives alone, ambulates independently and had no services prior to coming to the ER. Patient states she doesn't have a PCP. However, Nj Mitchell is listed as PCP on Patient Ping. Patient is actively using IV heroin and cocain. Patient denies having a HCP. Information provided. Patient not interested in completing one at this time. Patient received [employer] Kel[employer] vaccine and booster. Patient has positive blood cultures. 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 Due to substance abuse, patient will not be able to go home with PICC line and IV antibiotics. Referral made to [facility] at this time. Continue to monitor for d/c needs.
[2021-03-14] MEDS: methADONE HCl 20 MG/2 ML ORAL.CONC 10 MG PO (19:10)
--- NOTE | 2021-03-14 19:36 | PM.EVENT ---
Event Note Date of Service: 03/14/21 Event Note: Addiction brief note: Consult placed for patient with reported opioid use disorder in acute withdrawal. 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 Denies vomiting, loose stools. Reports history of methadone treatment in the past. Unable to obtain additional information due to patients level of discomfort. Plan: Methadone 20mg X1 and if needed additional 10mg in the evening. full note and additional orders to follow once better history obtained.
--- NOTE | 2021-03-15 02:20 | PM.EVENT ---
Event Note Date of Service: 03/15/21 Event Note: pt wants to leave AMA. she knows the risk she is taking and reports that she will be going to [facility] so that he rmother can see her. She is aware she has sepsis and hypoxia and that if not treated can .
--- NOTE | 2021-05-28 17:16 | PM.DS ---
DS: Providers Provider Date of Service: 05/28/21 Date of admission: 03/13/21 21:44 Date of discharge: 03/15/21 Primary care physician: Nj Mitchell MD Consults: 03/13/21 21:43 Consult to Care Team Routine Comment: Reason for consultation: Opioid use disorder 03/14/21 10:43 Consult to Infectious Diseases Routine Consulting Provider: Anne Ordoñez Reason for consultation: GPC bacteremia Has provider been notified: No 03/14/21 13:03 Addiction Medicine Routine Consulting Provider: Terra Arita Reason for consultation: PSA Has provider been notified: Yes DS: Diagnosis Discharge Diagnosis (1) Bilateral pneumonia: Status: Acute (2) IVDU (intravenous drug user): Status: Acute (3) UTI (urinary tract infection): Status: Acute (4) Severe anemia: Status: Acute DS: Summary Hospital Course Hospital Course: 41-year-old female who denies any past medical history presents to the hospital with complaints of chest pain, shortness of breath, cough, and generally not feeling well.? Patient reports that her symptoms started about a week ago.? She has also had a fever and been feeling chills.? She reports no recent sick contacts, she does use cocaine and heroin which she injects to wounds in her arms bilaterally.? She reports that she has been cutting down on drugs but may be experiencing withdrawals at this time.? She describes the chest pain as sharp, stabbing, constant, nonradiating, 5/10 in nature.? No relieving factors. Patient denies any headache or change in vision, no abdominal pain nausea or vomiting, has diarrhea with no constipation.? No urinary symptoms and no lower extremity edema.? On arrival to the ED patient found to have a temp of 103.2, with a soft BP.? Satting 98% on room air Labs are significant for leukopenia of 3.8, hemoglobin of 5.1, hematocrit of 17.4, MCV of 61.1, sodium of 134, potassium 3.1, UA positive for leukocyte Estrace as well WBC, COVID-19 negative.? COVID-19 PCR is also negative.? When asked about her anemia, patient denies any melena, but reports bright red blood sometimes mixed with her stool, denies using any NSAIDs.? Denies having heavy menses and reports that she has not had any menses in 3 years. Chest x-ray shows hazy multifocal airspace opacities concerning for an atypical infection Patient started on antibiotics, given fluids and will be admitted for further management ON 03/15/21 0220 pt wants to leave AMA. she knows the risk she is taking and reports that she will be going to [facility] so that he rmother can see her. She is aware she has sepsis and hypoxia and that if not treated can . Time Spent with Patient Time attestation: Total time spent providing and/or coordinating discharge services: Discharge coordination time: Greater than 30 minutes Quality: Safe Use of Opioids Does Pt have an Active Cancer Diagnosis on the Problem List?: No Quality: Stroke Does the patient have a stroke diagnosis?: No Physical Exam Vital Signs: Vital Signs: Last Vital Signs Temp 98.1 F 03/14/21 14:53 Pulse 81 03/14/21 14:53 Resp 17 03/14/21 14:53 BP 123/65 03/14/21 14:53 Pulse Ox 98 03/14/21 14:53 BMI result Body Mass Index 30.0 DS: Data Data Completed and Pending Completed studies during hospitalization [Text1]: Procedures Transfusion of Nonautologous Red Blood Cells into Peripheral Vein, Percutaneous Approach (03/13/21) Discharge Plan Discharge Patient Disposition: Left Against Medical Advice Discharge Diagnosis: sepsis Referrals: Physician,None [Physician] - 1 Week Discharge Medications: No Action No Known Home Meds 0RF Discharge Orders: Discharge Order (Routine); Ordered 05/28/21 Ordered By: Jacky De Oliveira Diet: advance to usual diet Activity on Discharge: As tolerated Care Plan Goals: AMA Health Concerns: AMA Plan of Treatment: AMA Assessment: AMA Discharge Date/Time: 03/14/21 22:00
== END 2021-03-14 22:00 | disposition left against medical advice (07) | DRG 720 ==
LOC: HO.ED 17:53 → HO.EDOVER 21:56
PROVIDERS: Nurse Practitioner Psychiatric/Mental Health; Admitting Provider Internal Medicine; Emergency Provider Internal Medicine; PCP Internal Medicine; Visit Provider Hospitalist
DX: A41.9 Sepsis, unspecified organism (principal); J18.9 Pneumonia, unspecified organism; D63.8 Anemia in other chronic diseases classified elsewhere; F17.210 Nicotine dependence, cigarettes, uncomplicated; D50.9 Iron deficiency anemia, unspecified; F11.13 Opioid abuse with withdrawal; R09.02 Hypoxemia; L03.114 Cellulitis of left upper limb; L03.113 Cellulitis of right upper limb; N39.0 Urinary tract infection, site not specified; Z20.822 Contact with and (suspected) exposure to COVID-19; Z71.6 Tobacco abuse counseling
CPT/HCPCS: 0241U; 36415; 71045; 80048; 80076; 80307; 81001; 82272; 82728; 83540; 83605; 84484; 85007; 85014; 85018; 85025; 85027; 85610; 86850; 86900; 86901; 86923; 87040; 87077; 87086; 87088; 87186; 87205; 87635; 93005; 96361; 96374; 96375; 99285; J1170; J1885; J2060; J2543; J2930; J3370; P9016

== ENCOUNTER 2021-05-07 16:30 | Outpatient (REF) | payer OTHER, SELFPAY ==
[2021-05-07 17:49] LABS: Appearance Urine CLOUDY; Color Urine RED; Glucose Urine UA NEG (NEG); Leukocyte Esterase Urine TRACE (NEG); Nitrite Urine NEG (NEG); Specific Gravity - Urine 1.015 (1.005-1.025); Urine Blood 3+ (NEG); Urine Ketones NEG (NEG); Urine Protein 2+ MG/DL (NEG-TRACE)
[2021-05-07 18:03] LABS: RBC Urine TNTC /HPF (0)
[2021-05-08 07:06] LABS: Creatinine Urine 38.83 mg/dL; Protein/Creatinine Ratio, Ur 3.73 (<0.2); Total Protein Urine Random 145 mg/dL (<12)
[2021-05-08 07:19] LABS: Microalbum/Creatinine Ratio Ur 1612.1 ug/mg cr
== END 2021-05-07 16:31 | disposition home or self-care (01) ==
LOC: HO.LAB 16:30
PROVIDERS: Visit Provider Internal Medicine Nephrology
DX: N17.9 Acute kidney failure, unspecified (principal); R60.1 Generalized edema; D64.9 Anemia, unspecified
CPT/HCPCS: 81001; 82043; 84156; 87086

== ENCOUNTER 2023-03-26 11:24 | Emergency (ER) | payer OTHER, SELFPAY ==
[2023-03-26 11:33] VITALS: BP 104/47; PULSE 79; RESP 18; TEMP 37; O2SAT 97; BMI 27.5
--- NOTE | 2023-03-26 11:39 | ED_ITS ---
HPI - Wound/Laceration General Chief Complaint: Wound/Laceration Stated Complaint: L leg infection Related Data Home Medications Medication Instructions Recorded Confirmed No Known Home Meds 03/13/21 03/13/21 Allergies Allergy/AdvReac Type Severity Reaction Status Date / Time No Known Allergies Allergy Verified 03/26/23 11:33 [facility] Past Medical History Medical History (Updated 03/26/23 @ 16:02 by Jaclyn Keita NP) Back pain Surgical History (Updated 03/14/21 @ 06:21 by Luis Tobias MD) No pertinent past surgical history Social History Social History Alcohol intake: never Patient Tobacco Use Status: Current everyday Tobacco user Substance Use Type: Crack/Cocaine, Heroin and Other service: No Current occupational status: unemployed Physical Exam Vital Signs: Vital Signs: Last Vital Signs Temp 98.6 F 03/26/23 11:33 Pulse 79 03/26/23 11:33 Resp 18 03/26/23 11:33 BP 104/47 L 03/26/23 11:33 Pulse Ox 97 03/26/23 11:33 O2 Del Method Room Air 03/26/23 11:33 BMI result Body Mass Index 27.5 Course Course Course Narrative: RME: Infection in bilateral lower legs with open sores x 2 weeks. 7/10 pain. Fevers and chills noted. IVDU heroin and cocaine. Used last at 1 AM. Clean for 3 years but relapsed 4 months ago. No fever here in ED. HX: Endocarditis and sepsis 3 years ago. Discharge Plan Discharge Clinical Impression: Patient left after triage Patient Disposition: Left W/O Completing Treatment Prescriptions: No Action No Known Home Meds
== END 2023-03-26 17:33 | disposition left against medical advice (07) ==
LOC: HO.ED 17:31
PROVIDERS: Emergency Provider Emergency Medicine; PCP Internal Medicine
DX: L08.89 Other specified local infections of the skin and subcutaneous tissue (principal); F19.90 Other psychoactive substance use, unspecified, uncomplicated; F14.90 Cocaine use, unspecified, uncomplicated; R50.9 Fever, unspecified; F17.200 Nicotine dependence, unspecified, uncomplicated
CPT/HCPCS: 99281

== ENCOUNTER 2023-04-23 18:18 | Emergency (ER) | payer OTHER, SELFPAY ==
[2023-04-23 18:39] VITALS: BP 142/67; PULSE 84; RESP 20; TEMP 36.3; O2SAT 100; BMI 36.9
--- NOTE | 2023-04-23 18:45 | ED_ITS ---
HPI - General Adult General Chief complaint: General Medical Stated complaint: ?miscarriage Related Data Home Medications Medication Instructions Recorded Confirmed No Known Home Meds 03/13/21 03/13/21 Allergies Allergy/AdvReac Type Severity Reaction Status Date / Time No Known Allergies Allergy Verified 03/26/23 11:33 [facility] Past Medical History Medical History (Updated 04/25/23 @ 17:04 by Nanda Cartagena NP) Back pain Surgical History (Updated 03/14/21 @ 06:21 by Luis Tobias MD) No pertinent past surgical history Social History Social History Alcohol intake: never Patient Tobacco Use Status: Current everyday Tobacco user Substance Use Type: Crack/Cocaine, Heroin and Other Advance Directives: No Advance Directives Information Provided: No service: No Current occupational status: unemployed Physical Exam ED Vital Signs: BMI result Body Mass Index 36.9 Course Course Course Narrative: This is a rapid medical exam: Additional HPI, ROS, PE not included below will be deferred to primary provider. Patient is a 43-year-old female LMP 10/18/22 presenting to the ED with complaint of lower back pain. States she had a positive home test 3 mos ago, went to [place] recently and was told she was not . Had intercourse last night, an today reported tissue protruding from her vagina, states has a video. Denies abdominal pain or vaginal bleeding. Plan: labs, UA, will need pelvic exam Discharge Plan Discharge Clinical Impression: Back pain Patient Disposition: Left W/O Completing Treatment Prescriptions: No Action No Known Home Meds Discharge Date/Time: 04/23/23 20:13
== END 2023-04-23 20:13 | disposition left against medical advice (07) ==
PROVIDERS: Emergency Provider Emergency Medicine; PCP Internal Medicine
DX: M54.50 Low back pain, unspecified (principal)
CPT/HCPCS: 99281